=== PATIENT | female | born 1965 | race Caucasian/White ===

== ENCOUNTER 2016-12-31 11:58 | Emergency (ER) | payer MEDICARE, MEDICAID ==
--- NOTE | 2016-12-31 12:18 | EDM.PDOC ---
ED HPI GENERAL MEDICAL PROBLEM - General Chief Complaint: Lower Extremity Injury/Pain Stated Complaint: ER Time Seen by Provider: 12/31/16 12:05 Source of Information: Reports: EMS, Care Home Records History Limitations: Reports: Physical Impairment - History of Present Illness INITIAL COMMENTS - FREE TEXT/NARRATIVE: Unable to obtain history from patient due to disability. Reports of right leg pain and difficulty ambulating. Report from intermediate states she fell in the dining room. Long standing history of bipolar disorder, htn, hypothyroidism , neurofibromatosis, anxiety, dysphagia, epilepsy, gerd, impulse disorder, moderate intellectual disabilities, schizoaffective disorder. Onset: Today Location: Reports: Lower Extremity, Right - Related Data Allergies Allergy/AdvReac Type Severity Reaction Status Date / Time ceftriaxone sodium Allergy Cannot Verified 12/31/16 12:23 [From Rocephin] Remember divalproex sodium Allergy Cannot Verified 12/31/16 12:23 [From Depakote] Remember Home Meds: Home Meds Acetaminophen [Tylenol] 650 mg PO Q4H PRN 10/12/15 [History] Bisacodyl 10 mg PO DAILY PRN 10/12/15 [History] Calcium Carb & Citrate/Vit D3 [Calcium + D3 ER Tablet] 1 tab PO BID 10/12/15 [ History] Famotidine 20 mg PO BID 10/12/15 [History] Furosemide [Lasix] 20 mg PO DAILY PRN 10/12/15 [History] Melatonin 3 mg PO BEDTIME 10/12/15 [History] OLANZapine [ZyPREXA] 20 mg PO BEDTIME 10/12/15 [History] OXcarbazepine [Trileptal] 1,050 mg PO BEDTIME 10/12/15 [History] OXcarbazepine [Trileptal] 900 mg PO DAILY 10/12/15 [History] Ondansetron HCl [Zofran] 4 mg PO Q4H PRN 10/12/15 [History] Polyethylene Glycol 3350 [MiraLAX] 17 gm PO DAILY 10/12/15 [History] Propranolol HCl [Inderal LA] 60 mg PO DAILY 10/12/15 [History] traZODone HCl [Trazodone HCl] 200 mg PO BEDTIME 10/12/15 [History] LORazepam [Ativan] 1.5 mg PO QID #120 tablet 10/17/15 [Rx] Topiramate [Topamax] 200 mg PO DAILY #30 tablet 10/17/15 [Rx] Cranberry Fruit [Cranberry] 1 tab PO TID 12/31/16 [History] LORazepam [Ativan] 1 mg PO Q6H PRN 12/31/16 [History] Levothyroxine Sodium [Synthroid] 137 mcg PO ACBREAKFAST 12/31/16 [History] Phenytoin [Dilantin-125 Susp] 4 ml PO BID 12/31/16 [History] Potassium Chloride 10 meq PO BID 12/31/16 [History] guaiFENesin [Robitussin] 200 mg PO Q4H PRN 12/31/16 [History] Past Medical History HEENT History: Reports: Other (See Below) Other HEENT History: dysphagia Cardiovascular History: Reports: Hypertension Other Cardiovascular History: edema Gastrointestinal History: Reports: Chronic Constipation, GERD Genitourinary History: Reports: UTI, Recurrent Musculoskeletal History: Reports: Osteoporosis Neurological History: Reports: Seizure Psychiatric History: Reports: Anxiety, Bipolar, Other (See Below) Other Psychiatric History: impulse disorder Endocrine/Metabolic History: Reports: Hypothyroidism Social & Family History - Family History Family Medical History: Noncontributory - Tobacco Use Smoking Status *Q: Never Smoker Review of Systems - Review of Systems Review Of Systems: Unable To Obtain ED EXAM, GENERAL - Physical Exam Exam: See Below Exam Limited By: Physical Impairment General Appearance: Alert, WD/WN Eye Exam: Bilateral Eye: EOMI, PERRL Ears: Normal TMs Neck: Normal Inspection, Supple, Non-Tender Respiratory/Chest: No Respiratory Distress, Lungs Clear, Normal Breath Sounds, No Accessory Muscle Use, Chest Non-Tender Cardiovascular: Normal Peripheral Pulses, Regular Rate, Rhythm, No Murmur GI/Abdominal: Normal Bowel Sounds, Soft, Non-Tender Extremities: Pedal Edema (3+ bilateral, pitting noticed where nayana hose were bunched on her legs bilaterally) Neurological: Alert, CN II-XII Intact Psychiatric: Other (uncooperative) Skin Exam: Warm, Dry, Intact, Ecchymosis (right mike) Lymphatic: No Adenopathy Course - Vital Signs Last Recorded V/S: Last Vital Signs Temp 36.6 C 12/31/16 12:13 Pulse 80 12/31/16 12:13 Resp 16 12/31/16 12:13 BP 136/85 12/31/16 12:13 Pulse Ox - Orders/Labs/Meds Orders: Active Orders 24 hr Category Date Time Status Hip Min 2V or 3V w Pelvis Rt [CR] Stat Exams 12/31/16 12:05 Ordered Knee 3V Rt [CR] Stat Exams 12/31/16 12:05 Ordered - Radiology Interpretation Free Text/Narrative:: review of hip/pelvis and right knee x-rays - negative for acute fracture, will review with radiologist Departure - Departure Time of Disposition: 14:02 (left via ambulance back to [facility] at [facility]) Disposition: DC/Tfer to SNF 03 Condition: Good Clinical Impression: Right knee pain - Discharge Information Instructions: Knee Pain Additional Instructions: Continue ambulating as tolerated was walking without difficulty here at the ER Assist of 1 and gait belt if needed No acute fractures or injuries noted on x-ray follow up with primary provider as symptoms warrant Have nursing call with any questions or concerns - Problem List & Annotations (1) Right knee pain SNOMED Code(s): 55479706 Code(s): M25.561 - PAIN IN RIGHT KNEE Status: Acute Priority: Low Current Visit: Yes Qualifiers: Chronicity: unspecified Qualified Code(s): M25.561 - Pain in right knee - Problem List Review Problem List Initiated/Reviewed/Updated: Yes - My Orders Last 24 Hours: My Active Orders 12/31/16 12:05 Hip Min 2V or 3V w Pelvis Rt [CR] Stat Knee 3V Rt [CR] Stat - Assessment/Plan Last 24 Hours: My Active Orders 12/31/16 12:05 Hip Min 2V or 3V w Pelvis Rt [CR] Stat Knee 3V Rt [CR] Stat Assessment:: right knee pain Plan: Continue ambulating as tolerated was walking without difficulty here at the ER Assist of 1 and gait belt if needed No acute fractures or injuries noted on x-ray follow up with primary provider as symptoms warrant Have nursing call with any questions or concerns
[2016-12-31 12:26] VITALS: BP 136/85
== END 2016-12-31 13:47 ==
LOC: VM.ED 11:58
DX: M25.561 Pain in right knee (principal); E03.9 Hypothyroidism, unspecified; F41.9 Anxiety disorder, unspecified; F31.9 Bipolar disorder, unspecified; M81.0 Age-related osteoporosis without current pathological fracture; F63.9 Impulse disorder, unspecified; I10 Essential (primary) hypertension; K21.9 Gastro-esophageal reflux disease without esophagitis; Z88.5 Allergy status to narcotic agent; Z88.8 Allergy status to other drugs, medicaments and biological substances; Z79.899 Other long term (current) drug therapy; Z87.440 Personal history of urinary (tract) infections; F25.9 Schizoaffective disorder, unspecified
CPT/HCPCS: 73560-RT; 99282-GF; 99285

== ENCOUNTER 2017-01-04 14:04 | Emergency (ER) | payer MEDICARE, MEDICAID ==
[2017-01-04] MEDS ORDERED: LORazepam 2 MG/ML SDV IM ONE (14:32)
[2017-01-04 14:41] VITALS: BP 127/97
--- NOTE | 2017-01-04 14:53 | EDM.PDOC ---
ED HPI GENERAL MEDICAL PROBLEM - General Chief Complaint: Head Injury Stated Complaint: fell this AM, hit head, hematoma Time Seen by Provider: 01/04/17 14:24 Source of Information: Reports: Skilled Nursing Records, Other (health care provider from the care center) - History of Present Illness INITIAL COMMENTS - FREE TEXT/NARRATIVE: Patient fell this AM at around 0950. She has developed a hematoma on the back of her head. senior care staff concerned of some lethargy. No other symptoms. Patient unable to participate in history due to mental disability, no ability to talk. Onset: Today Onset Date: 01/04/17 Onset Time: 09:50 Location: Reports: Head - Related Data Allergies Allergy/AdvReac Type Severity Reaction Status Date / Time ceftriaxone sodium Allergy Cannot Verified 01/04/17 14:33 [From Rocephin] Remember divalproex sodium Allergy Cannot Verified 01/04/17 14:33 [From Depakote] Remember Home Meds: Home Meds Acetaminophen [Tylenol] 650 mg PO Q4H PRN 10/12/15 [History] Bisacodyl 10 mg PO DAILY PRN 10/12/15 [History] Calcium Carb & Citrate/Vit D3 [Calcium + D3 ER Tablet] 1 tab PO BID 10/12/15 [ History] Famotidine 20 mg PO BID 10/12/15 [History] Furosemide [Lasix] 20 mg PO DAILY PRN 10/12/15 [History] Melatonin 3 mg PO BEDTIME 10/12/15 [History] OLANZapine [ZyPREXA] 20 mg PO BEDTIME 10/12/15 [History] OXcarbazepine [Trileptal] 1,050 mg PO BEDTIME 10/12/15 [History] OXcarbazepine [Trileptal] 900 mg PO DAILY 10/12/15 [History] Ondansetron HCl [Zofran] 4 mg PO Q4H PRN 10/12/15 [History] Polyethylene Glycol 3350 [MiraLAX] 17 gm PO Q48H 10/12/15 [History] Propranolol HCl [Inderal LA] 60 mg PO DAILY 10/12/15 [History] traZODone HCl [Trazodone HCl] 200 mg PO BEDTIME 10/12/15 [History] LORazepam [Ativan] 1.5 mg PO QID #120 tablet 10/17/15 [Rx] Topiramate [Topamax] 200 mg PO DAILY #30 tablet 10/17/15 [Rx] Cranberry Fruit [Cranberry] 1 tab PO TID 12/31/16 [History] LORazepam [Ativan] 1 mg PO Q6H PRN 12/31/16 [History] Levothyroxine Sodium [Synthroid] 137 mcg PO ACBREAKFAST 12/31/16 [History] Phenytoin [Dilantin-125 Susp] 4 ml PO BID 12/31/16 [History] Potassium Chloride 10 meq PO BID 12/31/16 [History] guaiFENesin [Robitussin] 200 mg PO Q4H PRN 12/31/16 [History] Past Medical History HEENT History: Reports: Other (See Below) Other HEENT History: dysphagia Cardiovascular History: Reports: Hypertension Other Cardiovascular History: edema Gastrointestinal History: Reports: Chronic Constipation, GERD Genitourinary History: Reports: UTI, Recurrent Musculoskeletal History: Reports: Osteoporosis Neurological History: Reports: Seizure Psychiatric History: Reports: Anxiety, Bipolar, Other (See Below) Other Psychiatric History: impulse disorder Endocrine/Metabolic History: Reports: Hypothyroidism Social & Family History - Family History Family Medical History: Noncontributory - Tobacco Use Smoking Status *Q: Unknown Ever Smoked ED ROS GENERAL - Review of Systems Review Of Systems: Unable To Obtain (non verbal, healthcare worker provided what she could) Skin: Reports: Bruising ED EXAM, HEAD INJURY - Physical Exam Exam: See Below Exam Limited By: Physical Impairment General Appearance: Alert, No Apparent Distress Head: Scalp Hematoma (occiput) Eyes: Bilateral Eye: EOMI (unable or unwilling to follow commands), PERRL Ears: Normal TMs Neck: Non-Tender, Full Range of Motion Respiratory: No Respiratory Distress, Lungs Clear, Normal Breath Sounds Cardiovascular: Normal Peripheral Pulses, Regular Rate, Rhythm GI/Abdominal Exam: Normal Bowel Sounds, Soft, Non-Tender Course - Vital Signs Last Recorded V/S: Last Vital Signs Temp 36.6 C 01/04/17 14:10 Pulse 76 01/04/17 14:10 Resp 16 01/04/17 14:10 BP 127/97 H 01/04/17 14:10 Pulse Ox 98 01/04/17 14:10 - Orders/Labs/Meds Meds: Medications Discontinued Medications Generic Name Dose Route Start Last Admin Trade Name Freq PRN Reason Stop Dose Admin Lorazepam 1 mg 01/04/17 14:32 Ativan IM 01/04/17 14:33 ONETIME ONE Departure - Departure Time of Disposition: 14:55 Disposition: DC/Tfer to SNF 03 Condition: Good Clinical Impression: Hematoma of occipital surface of head - Discharge Information Instructions: Contusion Additional Instructions: No neurologic findings to suggest acute intracranial bleeding, signs of this likely would have happened before now. IF SHE HAS NEUROLOGIC CHANGES SUCH UNEQUAL PUPILS, HEMIPLAGIA, ACUTE INTENSE HEADACHE, VOMITING, THEN RETURN FOR FURTHER EVALUATION, OTHERWISE FOLLOW UP IN CLINIC IS APPROPRIATE IF able use ice to the back of her head Give any scheduled tylenol or ibuprofen for swelling and pain Call with any questions or concerns - Problem List & Annotations (1) Hematoma of occipital surface of head SNOMED Code(s): 803658659, 569520386 Code(s): S00.83XA - CONTUSION OF OTHER PART OF HEAD, INITIAL ENCOUNTER Status: Acute Priority: Medium Current Visit: Yes Qualifiers: Encounter type: initial encounter Qualified Code(s): S00.83XA - Contusion of other part of head, initial encounter - Problem List Review Problem List Initiated/Reviewed/Updated: Yes - Assessment/Plan Assessment:: Hematoma Plan: No neurologic findings to suggest acute intracranial bleeding, signs of this likely would have happened before now. IF SHE HAS NEUROLOGIC CHANGES SUCH UNEQUAL PUPILS, HEMIPLAGIA, ACUTE INTENSE HEADACHE, VOMITING, THEN RETURN FOR FURTHER EVALUATION, OTHERWISE FOLLOW UP IN CLINIC IS APPROPRIATE IF able use ice to the back of her head Give any scheduled tylenol or ibuprofen for swelling and pain Call with any questions or concerns
== END 2017-01-04 15:01 ==
LOC: VM.ED 14:04
DX: S00.03XA Contusion of scalp, initial encounter (principal); I10 Essential (primary) hypertension; E03.9 Hypothyroidism, unspecified; F41.9 Anxiety disorder, unspecified; K21.9 Gastro-esophageal reflux disease without esophagitis; Z87.440 Personal history of urinary (tract) infections; Z88.1 Allergy status to other antibiotic agents; Z79.899 Other long term (current) drug therapy; W19.XXXA Unspecified fall, initial encounter
CPT/HCPCS: 99283-GF; 99284